=== PATIENT | male | born 1940 | race African-American/Black ===

== ENCOUNTER 2016-07-17 07:14 | Day surgery (SDC) | payer OTHER ==
[~2016-07-17] VITALS: Ht 175.3 cm; Wt 90.9 kg
[2016-07-17] VITALS (7 sets, daily range): BP systolic 157–204; BP diastolic 60–95; PULSE 50–61; RESP 16–20; TEMP 98.2; O2SAT 92–99
[~2016-07-17 07:14] MED LIST: AMLO10 PO; Amoxicillin PO; BIAX500T PO; CLON.1 PO; FERR324T4 PO; GLIM1TAB PO; Hydralazine Hcl PO; LANTINJ SC; LISI5 PO; LOVA1TAB47 PO; PROT40TA PO; XALA0.00 EACH EYE
[2016-07-17] MEDS ORDERED: VANCOMYCIN 1000 MG/NS 250 ML - implanted port/tunneled catheter IV SCH ×2 (08:00)
[2016-07-17] MEDS ORDERED: POVIDONE IODINE 5% (ANTISEPSIS KIT) 4 APPLICATIONS EACH NARE SCH (08:00)
[2016-07-17] MEDS ORDERED: CHLORHEXIDINE GLUCONATE 2 % 1 PACK (2 CLOTHS) TOPICAL SCH (08:00)
[2016-07-17] MEDS ORDERED: SODIUM CHLORIDE 0.9% 1000 ML IV SCH (08:00)
[2016-07-17] MEDS ORDERED: ceFAZolin 2 GM PREMIX 50 ML - implanted port/tunneled catheter insertion IV SCH (08:00)
[2016-07-17] MEDS ORDERED: LATA0.002 EACH EYE (08:30)
[2016-07-17] MEDS ORDERED: LANTUS2P SQ (08:30)
[2016-07-17] MEDS ORDERED: CAPT50TA PO (08:30)
[2016-07-17] MEDS ORDERED: FISHCAP4 PO (08:30)
[2016-07-17] MEDS ORDERED: AMLO10TA2 PO (08:30)
[2016-07-17] MEDS ORDERED: FERR325T PO (08:30)
[2016-07-17] MEDS ORDERED: STOO100C PO (08:30)
[2016-07-17] MEDS ORDERED: LOVA20TA PO (08:30)
[2016-07-17] MEDS ORDERED: CLON0.2T PO (08:30)
[2016-07-17] MEDS ORDERED: ASPI81CH CHEW (08:30)
[2016-07-17] MEDS ORDERED: LIDOCAINE 1%/EPINEPHrine 1:100,000 SOLN 20 ML VIAL ONE (09:27)
[2016-07-17 10:20] LABS: AUTOMATED NEUTROPHIL # 3.1 TH/MM3 (1.8-7.7); BASOPHIL % 0.4 % (0.0-2.0); EOSINOPHIL # 0.2 TH/MM3 (0-0.4); EOSINOPHIL % 3.6 % (0.0-4.0); HEMATOCRIT 41.7 % (39.0-51.0); HEMO FLAGS DIFF FINAL; LYMPH % 25.4 % (9.0-44.0); LYMPHOCYTE # 1.3 TH/MM3 (1.0-4.8); MEAN CELL VOLUME 84.1 FL (80.0-100.0); MEAN CORPUSCULAR HEMOGLOBIN 28.3 PG (27.0-34.0); MEAN CORPUSCULAR HGB CONC 33.6 % (32.0-36.0); MONO % 11.8 % (0.0-8.0); NEUT % 58.8 % (16.0-70.0); PLATELET COUNT 240 TH/MM3 (150-450); RED BLOOD COUNT 4.97 MIL/MM3 (4.50-5.90); RED CELL DISTRIBUTION WIDTH 16.2 % (11.6-17.2); WHITE BLOOD COUNT 5.3 TH/MM3 (4.0-11.0)
[2016-07-17 10:28] LABS: APTT (PATIENT) 25.4 SEC (24.3-30.1); PROTHROMBIN TIME - PATIENT 11.1 SEC (9.8-11.6)
[2016-07-17] MEDS ORDERED: fentaNYL CITRATE 250 MCG/5 ML AMP ONE (10:39)
[2016-07-17] MEDS ORDERED: MIDAZOLAM HCL 5 MG/5 ML VIAL ONE (10:39)
--- NOTE | 2016-07-17 12:35 | PD.RAD ---
Post Procedure Progress Note Pre Procedure Diagnosis: (1) Colon cancer Post Procedure Diagnosis: (1) Colon cancer Procedure Date: Jul 17, 2016 Supervising Radiologist: Carlyle Reyes Proceduralist/Assist: Gustavo Us, RT(R), RT Duc(R)() Anesthesia: Local, Analgesia, Conscious Sedation Plan of Activity Patient to Unit: ROPU Patient Condition: Good See PACS Report for procedural detail/treatment Central Venous Access Device Procedure 1 Right Internal Jugular Infusaport Placement single lumen [place]i: 8 Procedure 2 Right Peripheral Dialator Placement single lumen (3-4 dilator) Carlyle Reyes MD Jul 17, 2016 12:35
[2016-07-17] MEDS ORDERED: SODIUM CHLORIDE 0.9% FLUSH 10 ML FLUSH IVF PRN (12:45)
--- NOTE | 2016-07-18 10:22 | RADRPT ---
EXAM DATE/TIME: 07/17/2016 00:00 [facility] COMPARISON: No previous studies available for comparison. INDICATIONS : Patient presents with colon cancer in need of peripheral intravenous access for medication administr ation and blood draw. MEDICAL HISTORY : Colon cancer Small bowel obstruction Anemia DM HTN Dyslipidemia Hypothyroidism Hypercholesteremia Kidney disease SURGICAL HISTORY : Colonoscopy Hemicolectomy Endoscopy EGD ENCOUNTER: Initial ACUITY: 4 - 6 months PAIN SCORE: 0/10 LOCATION: N/A IMAGE SERIES: 0 ACCESS: Right basilic vein DEVICE(S): 1.) 3/4 Cymro Dilator PROCEDURE : 1. Ultrasound guided venous access. The risks, benefits and alternatives to the procedure were explained and verbal and written consent w as obtained. The site was prepped in sterile fashion. Full sterile technique was used, including ca p, mask, sterile gloves and gown and a large sterile sheet. Hand hygiene and 2% chlorhexidine and/or betadine/alcohol prep was utilized per protocol for cutaneous antisepsis. The skin and subcutaneous tissues were infiltrated with local anesthetic solution. With ultrasound guidance the prescribed vein was punctured for venous access. A 4 Cymro dilator was placed and was flushed and locked with heparin. The patient tolerated procedure well and there were n o complications. CONCLUSION: Uncomplicated ultrasound guided venous access. Carlyle Reyes MD on July 18, 2016 at 10:21 Board Certified Radiologist. This report was verified electronically.
--- NOTE | 2016-07-18 11:07 | RADRPT ---
EXAM DATE/TIME: 07/17/2016 10:57 [facility] COMPARISON: No previous studies available for comparison. INDICATIONS : Patient presents with colon cancer in need of port placement for chemotherapy treatment. MEDICAL HISTORY : Colon cancer Small bowel obstruction Anemia DM HTN Dyslipidemia Hypothyroidism Hypercholesteremia Kidney disease SURGICAL HISTORY : Colonoscopy Hemicolectomy Endoscopy EGD ENCOUNTER: Initial ACUITY: 4-6 months PAIN SCORE: 0/10 LOCATION: N/A FLUORO TIME: 0.6 minutes IMAGE SERIES: 0 SEDATION TIME: 30 minutes ACCESS: Right internal jugular vein SEDATION: 1.) 2 mg midazolam (Versed) IV 2.) 100 mcg fentanyl (Sublimaze) IV Prophylactic antibiotics were administered with appropriate pre-procedure timing. Vancomycin within 2 hours of procedure, Ancef (or alternative) within 1 hour of procedure. DEVICE: 1. 8 Czech single lumen Bard Power Port PROCEDURE : 1. Continuous pulse oximetry and EKG monitoring. 2. Intravenous conscious sedation. 3. Ultrasound guidance for venous access. 4. Fluoroscopic guided implantable central venous port placement. The patient was placed supine. The neck was prepped in sterile fashion. Full sterile technique was u sed, including cap, mask, sterile gloves and gown, and a large sterile sheet. Hand hygiene and 2% ch lorhexidine Betadine was utilized per protocol for cutaneous antisepsis with appropriate dry time for site. The skin and subcutaneous tissues were infiltrated with local anesthetic solution. Under direct ultrasound guidance, central venous access was accomplished in the targeted vessel. The ultrasound images depicting access guidance were stored and saved to PACS for permanent record. A s ubcutaneous pocket was created using blunt dissection. The port was introduced to the pocket. The c atheter tubing was fed through a subcutaneous tunnel to the venotomy site. The catheter tubing was c ut to a suitable length and then was introduced through a valved Peel-Away sheath and positioned with catheter tubing tip at the cavo-atrial junction level. The pocket incision was closed with subcutic ular Vicryl suture. Steri-Strips were applied. The port was flushed and locked with heparin solutio n per protocol. Sterile dressing was applied to the site. The patient tolerated the procedure well. Conscious sedation was performed with the prescribed dosages and duration as above in the presence of an independent trained radiology nurse to assist in the monitoring of the patient. EKG and oximetry remained stable throughout the procedure. The patient tolerated the procedure well and there were no complications. The patient was sent to post anesthesia recovery in stable condition. CONCLUSION: Uncomplicated ultrasound and fluoroscopic guided implanted central venous port catheter placement as described in detail above. An 8 Czech Power port was placed. Carlyle Reyes MD on July 18, 2016 at 11:05 Board Certified Radiologist. This report was verified electronically.
== END 2016-07-17 15:30 | disposition home or self-care (01) ==
LOC: HROP 07:14 → HRIP 07:18 → HROP 15:30
PROVIDERS: ATTEND Internal Medicine Hematology & Oncology
DX: Z45.2 Encounter for adjustment and management of vascular access device (principal); C18.9 Malignant neoplasm of colon, unspecified; I10 Essential (primary) hypertension; E11.9 Type 2 diabetes mellitus without complications; E03.9 Hypothyroidism, unspecified; E78.00 Pure hypercholesterolemia, unspecified; Z79.01 Long term (current) use of anticoagulants
CPT/HCPCS: 36410; 36561; 76937; 77001; 85025; 85610; 85730; 99152; 99153; C1788; J0690; J1642; J2250; J3010; J3370; J7030; J7050